=== PATIENT | female | born 1950 | race Two or more races ===

== ENCOUNTER 2017-06-16 14:46 | Emergency (ER) | payer OTHER ==
[~2017-06-16] VITALS: Ht 162.6 cm; Wt 61.2 kg
[~2017-06-16 14:46] MED LIST: SINGULAIR10 MG; SYNTHROID100 MCG
[2017-06-16] MEDS ORDERED: DIVALPROEX SOD250 MG (15:19)
[2017-06-16] MEDS ORDERED: RESTORIL30 M1 (15:19)
[2017-06-16] MEDS ORDERED: LEVETIRACETAM1000 MG (15:20)
[2017-06-16] MEDS ORDERED: ASPIR 8181 MG (15:20)
[2017-06-16] MEDS ORDERED: LISINOPRIL5 MG (15:20)
[2017-06-17] MEDS ORDERED: MECLIZINE HCL25 MG PO (12:33)
== END 2017-06-17 14:58 | disposition home or self-care (01) ==
LOC: ER 14:46 → CPU-OBS 15:33 → ER 06-17 14:58
DX: S20.212A Contusion of left front wall of thorax, initial encounter (principal); R07.89 Other chest pain; R42 Dizziness and giddiness; H91.90 Unspecified hearing loss, unspecified ear; A85 Other viral encephalitis, not elsewhere classified; R06.02 Shortness of breath; F41.8 Other specified anxiety disorders; W18.09XA Striking against other object with subsequent fall, initial encounter; Y93.89 Activity, other specified; Y92.89 Other specified places as the place of occurrence of the external cause; Y99.8 Other external cause status

== ENCOUNTER 2021-07-05 11:51 | Emergency (ER) | payer OTHER ==
[~2021-07-05] VITALS: Ht 162.6 cm; Wt 60.8 kg
[~2021-07-05 11:51] MED LIST changes: +ASPIR 8181 MG; +DIVALPROEX SOD250 MG; +LEVETIRACETAM1000 MG; +LISINOPRIL5 MG; +MECLIZINE HCL25 MG PO; +RESTORIL30 M1
== END 2021-07-05 17:21 | disposition home or self-care (01) ==
LOC: ER 11:51
DX: S40.012A Contusion of left shoulder, initial encounter (principal); S50.12XA Contusion of left forearm, initial encounter; S60.222A Contusion of left hand, initial encounter; W18.30XA Fall on same level, unspecified, initial encounter; Y93.9 Activity, unspecified; Y92.9 Unspecified place or not applicable; Y99.9 Unspecified external cause status